=== PATIENT | female | born 1995 | race American Indian/Alaskan Native ===

== ENCOUNTER 2021-10-11 04:55 | Inpatient (IN) | payer MEDICAID ==
[2021-10-11] MEDS ORDERED: TERBUTALINE 1 MG/1 ML INJ SUB-Q PRN (05:20)
[2021-10-11] MEDS ORDERED: LIDOCAINE (2%) 20 MG/1 ML VIAL 20 ML MDV INFILTRATI ONE (05:20)
[2021-10-11] MEDS ORDERED: ACETAMINOPHEN 325 MG TAB PO PRN (05:20)
[2021-10-11] MEDS ORDERED: fentaNYL 100 MCG/2 ML INJ IV PRN (05:20)
[2021-10-11] MEDS ORDERED: MINERAL OIL 30 ML ORAL LIQD PO PRN (05:20)
[2021-10-11] MEDS ORDERED: OXYTOCIN DRIP 30 UNITS/500 ML BAG IV SCH (06:00)
[2021-10-11 06:01] LABS: Hematocrit 31.9 % (30.3-42.9); Hemoglobin 10.2 gm/dl (10.1-14.3); Mean Corpuscular HGB Conc 32 % (30-34); Mean Corpuscular Volume 82 fl (79-97); Platelet Count 122 K/mm3 (140-440); Red Blood Count 3.88 M/mm3 (3.65-5.03); Red Cell Distribution Width 14.6 % (13.2-15.2)
[2021-10-11] MEDS: miSOPROStol 100 MCG TAB PO SCH ×3 (06:08→14:18)
--- NOTE | 2021-10-11 08:27 | History and Physical Report ---
History of Present Illness Date of examination: 10/11/21 Date of admission: 10/11/21 05:22 Chief complaint: Here for induction of labor for IUGR History of present illness: 25 Y/O presents to labor and delivery for induction of labor due to IUGR @ 5th %. [facility] rec delivery at 37 weeks. She is now 37.6 weeks. care at [facility] Past History Past Surgical History: no surgical history Family/Genetic History: none Social history: no significant social history - Obstetrical History Expected Date of Delivery: 10/26/21 Actual Gestation: 37 Week(s) 6 Day(s) : 3 Number of Living Children: 1 Medications and Allergies Allergies Allergy/AdvReac Type Severity Reaction Status Date / Time No Known Allergies Allergy Unverified 10/11/21 05:15 Active Meds: Active Medications Acetaminophen (Acetaminophen 325 Mg Tab) 650 mg PO Q4H PRN PRN Reason: Pain, Mild (1-3) Butorphanol Tartrate (Butorphanol 2 Mg/1 Ml Inj) 1 mg IV Q2H PRN PRN Reason: Pain, Moderate(4-6) LABOR PAIN Fentanyl (Fentanyl 100 Mcg/2 Ml Inj) 100 mcg IV Q2H PRN PRN Reason: Pain,Severe (7-10) LABOR PAIN Oxytocin/Sodium Chloride (Pitocin/Ns 30 Unit/500ml) 30 units in 500 mls @ 2 mls/hr IV TITR RICHARDSON; Protocol Lactated Ringer's (Lactated Ringers) 1,000 mls @ 125 mls/hr IV DIRECT RICHARDSON Mineral Oil (Mineral Oil 30 Ml Oral Liqd) 30 ml PO QHS PRN PRN Reason: Constipation Misoprostol (Misoprostol 100 Mcg Tab) 25 mcg PO Q4H RICHARDSON Stop: 10/11/21 18:01 Last Admin: 10/11/21 06:08 Dose: 25 mcg Terbutaline Sulfate (Terbutaline 1 Mg/1 Ml Inj) 0.25 mg SUB-Q ONCE PRN PRN Reason: Hyperstimulation/Hypertonicity Review of Systems All systems: negative - Vital Signs Vital signs: Vital Signs Pulse BP 82 119/76 10/11/21 05:31 10/11/21 05:31 Temp Pulse Resp BP Pulse Ox 98.7 F 72 18 119/76 100 10/11/21 06:19 10/11/21 08:17 10/11/21 06:19 10/11/21 05:31 10/11/21 08:17 - Physical Exam Breasts: Positive: deferred Cardiovascular: Regular rate Lungs: Positive: Clear to auscultation Abdomen: Positive: soft Genitourinary (Female): Positive: normal external genitalia Vulva: both: normal Uterus: Positive: enlarged Deep Tendon Reflex Grade: Normal +2 - Obstetrical FHR: category 1 Uterine Contraction Monitor Mode: External Cervical Dilatation: 1 Uterine Contraction Pattern: Irregular Uterine Contraction Intensity: Mild Results Result Diagrams: 10/11/21 05:45 Abnormal lab results 10/11/21 Range/Units 05:45 MCH 26 L (28-32) pg Plt Count 122 L (140-440) K/mm3 All other labs normal. Assessment and Plan A: 37.6 weeks Induction of labor for IUGR P: Cytotec
[2021-10-11] MEDS ORDERED: miSOPROStol 25 MCG TAB ONE (14:02)
[2021-10-11] MEDS ORDERED: DINOPROSTONE 10 MG VAG SUPP VG ONE (19:06)
[2021-10-12] MEDS ORDERED: FAMOTIDINE 10 MG TAB PO PRN (00:08)
[2021-10-12] MEDS ORDERED: FAMOTIDINE 20 MG TAB PO SCH (00:30)
[2021-10-12] MEDS: LACTATED RINGERS 1,000 ML IV SCH ×2 (07:48→16:03)
--- NOTE | 2021-10-12 15:57 | Event Note ---
Date: 10/12/21 S: Feeling contractions O: VE 1.5/60/-2, Cat I tracing A: Induction of labor for IUGR P: Increase pitocin Expect
--- NOTE | 2021-10-12 18:28 | Event Note ---
Date: 10/12/21 S: Standing up on side of the bed O: VE 70/-1, arom clear fluid, Pit at 12mu, CAT I tracing, using [place] for monitoring A: Induction of labor for IUGR P: Expect
[2021-10-12] MEDS: BUTORPHANOL 2 MG/1 ML INJ IV PRN ×2 (20:11→22:42)
--- NOTE | 2021-10-12 23:58 | Event Note ---
Date: 10/12/21 S: Pt feeling ctx, coping, declines epidural O: VE: /-1, Cat 1 tracing, Pit @ 14u A: Active labor P: Continue pitocin augmentation Expect
[2021-10-13] MEDS ORDERED: ONDANSETRON 4 MG/2 ML INJ IM ONE (00:11)
[2021-10-13] MEDS ORDERED: ONDANSETRON 4 MG/2 ML INJ ONE (00:12)
[2021-10-13] MEDS ORDERED: BUTORPHANOL 2 MG/1 ML INJ IV PRN (00:17)
[2021-10-13] MEDS: LACTATED RINGERS 1,000 ML IV SCH (00:31)
--- NOTE | 2021-10-13 00:53 | Procedure Note ---
OB Delivery Note - Vaginal Delivery position: OA Intrapartum events: other(please specify) Delivery induction: cervidil Delivery augmentation: rupture of membranes, pitocin Delivery monitor: external FHT, external uterine Route of delivery: Delivery placenta: spontaneous Delivery cord: nuchal cord (1 tight) Episiotomy: none Delivery laceration: none Anesthesia: intravenous Delivery comments: by nurse of a viable male at 0039 on 10/13/21. Nuchal cord x1 reduced by the nurse. Cord clamped and cut by line prep cook upon arrival to the room. Baby taken to the warmer. Baby slow to transition, NICU and respiratory called to the room. Stadol 2cc given approximately 5 minutes before delivery. QBL 350. Placenta spontaneous, 3VC, intact. Placenta sent to pathology, cord notably small in diameter. APGARS not assigned at the time of note, baby transferring to NICU to transition. - Infant A Infant Gender: Male
[2021-10-13] MEDS ORDERED: LANOLIN/ZINC/DIMETHICONE (LANSINOH) 7 GM TP PRN (01:01)
[2021-10-13] MEDS ORDERED: WITCH HAZEL/ GLYCERIN PAD TP PRN (01:01)
[2021-10-13] MEDS ORDERED: oxyCODONE /ACETAMINOPHEN 5-325MG TAB PO PRN (01:01)
[2021-10-13] MEDS ORDERED: ACETAMINOPHEN 325 MG TAB PO PRN (01:01)
[2021-10-13 16:48] LABS: Hematocrit 27.9 % (30.3-42.9); Hemoglobin 9.2 gm/dl (10.1-14.3)
[2021-10-14] MEDS: IBUPROFEN 800 MG TAB PO SCH ×2 (00:34→05:25)
[2021-10-14] MEDS ORDERED: diphenhydrAMINE 50 MG CAP PO ONE (01:20)
[2021-10-14 09:09] VITALS: BP 101/59
--- NOTE | 2021-10-14 09:48 | Progress Note ---
Assessment and Plan A: PPD 2 with nuchal cord x1 P: continue routine PP orders D/C home today Subjective - Subjective Date of service: 10/14/21 Patient reports: appetite normal, voiding normally, pain well controlled, ambulating normally : in NICU (to be discharge today) Objective - Vital Signs Latest vital signs: Vital Signs Temp Pulse Resp BP Pulse Ox Pulse Ox 10/14/21 07:38 98.0 F 73 18 101/59 100 10/14/21 06:21 98.0 F 71 18 99/54 99 10/14/21 00:04 97.8 F 84 16 104/52 99 10/13/21 19:45 98 10/13/21 16:45 98.3 F 87 18 103/63 100 10/13/21 11:10 98.1 F 94 H 18 111/70 94 10/13/21 10:00 98 Intake and Output 10/13/21 10/14/21 10/14/21 23:59 07:59 15:59 Intake Total 780 600 120 Balance 780 600 120 Intake: Oral 480 0 120 Intake, Free Water 300 600 Other: Total, Intake Amount 480 0 120 # Voids Void 1 2 1 - Exam Breasts: Present: Cardiovascular: Present: Regular rate Lungs: Present: Clear to auscultation Abdomen: Present: normal appearance, soft, tenderness Uterus: Present: firm, fundal height below umbilicus Extremities: Present: normal - Labs Labs: Abnormal lab results 10/13/21 Range/Units 16:23 Hgb 9.2 L (10.1-14.3) gm/dl Hct 27.9 L (30.3-42.9) %
--- NOTE | 2021-10-14 09:50 | Discharge Summary ---
Providers - Providers Date of Admission: 10/11/21 05:22 Date of discharge: 10/14/21 Attending physician: YESSY MCGHEE MD [facility] Primary care physician: LIANNE FERRERA Hospitalization Reason for admission: induction of labor Delivery: Episiotomy: none Laceration: none Other procedures: none complications: none Discharge diagnosis: IUP at term delivered baby: male (to be discharged from nicu today) Condition at discharge: Good Disposition: 01 HOME / SELF CARE / HOMELESS Plan - Discharge Medications Prescriptions: Ibuprofen [Motrin 800 MG tab] 800 mg PO Q8HR #30 tablet - Provider Discharge Summary Activity: routine, no sex for 6 weeks, no heavy lifting 4 weeks, no strenuous exercise Diet: routine Instructions: routine Additional instructions: [] Smoking cessation referral if applicable(refer to patient education folder for contact #) [] Refer to [facility]'s [facility] Booklet Call your doctor immediately for: * Fever > 100.5 * Heavy vaginal bleeding ( >1 pad per hour) * Severe persistent headache * Shortness of breath * Reddened, hot, painful area to leg or breast * Drainage or odor from incision. * Keep incision clean and dry at all times and follow doctor's instructions regarding bathing/showering - Follow up plan Follow up: LIANNE FERRERA MD [Primary Care Provider] - 7 Days (For infant circumcision)
== END 2021-10-14 12:00 | disposition home or self-care (01) | DRG 775 ==
LOC: TRG 04:55 → LD 04:57 → TRG 05:22 → OB 10-13 04:27
PROVIDERS: ADMIT Obstetrics & Gynecology; ATTEND Obstetrics & Gynecology Gynecology
PROC: 10E0XZZ Delivery of Products of Conception, External Approach (ICD-10-PCS; principal; 2021-10-13)
PROC: 10907ZC Drainage of Amniotic Fluid, Therapeutic from Products of Conception, Via Natural or Artificial Opening (ICD-10-PCS; 2021-10-13)
PROC: 3E0P7VZ Introduction of Hormone into Female Reproductive, Via Natural or Artificial Opening (ICD-10-PCS; 2021-10-13)
DX: O36.5930 Maternal care for other known or suspected poor fetal growth, third trimester, not applicable or unspecified (principal); Z37.0 Single live birth; Z20.822 Contact with and (suspected) exposure to COVID-19; Z3A.37 37 weeks gestation of pregnancy; O69.81X0 Labor and delivery complicated by cord around neck, without compression, not applicable or unspecified
CPT/HCPCS: 36415; 85014; 85018; 85027; 86850; 86900; 86901; 88307; G0378; J0595; J2405; J2590; J7120; U0003